=== PATIENT | male | born 1965 | race Caucasian/White ===

== ENCOUNTER 2017-02-13 15:21 | Emergency (ER) | payer OTHER ==
[~2017-02-13] VITALS: Ht 185.4 cm; Wt 118.0 kg
[2017-02-13 15:37] VITALS: Ht 185.4 cm; Wt 118.0 kg
[2017-02-13] MEDS ORDERED: KETOROLAC 15 MG INJ IV STA (17:04)
--- NOTE | 2017-02-13 17:11 | ERD ---
ER Documentation Chief Complaint Chief Complaint sent by pmd, possible infection on right calf x1wk HPI insect sting right calf, incident happed 10 days ago, removed stinger progressive worsen , now red, hot, draining pus, and edema. ROS All systems reviewed and are negative except as per history of present illness. Medications Home Meds Active Scripts Ibuprofen* (Motrin*) 600 Mg Tab, 600 MG PO Q6, #30 TAB Prov:JAYASHREE,ROULA 02/13/17 Hydrocodone/Acetaminophen ([place] 10-325 Tablet) 1 Each Tablet, 1 TAB PO Q6H Y for PAIN, #10 TAB Prov:JAYASHREE,ROULA 02/13/17 Clindamycin Hcl* (Clindamycin Hcl*) 300 Mg Capsule, 300 MG PO TID for 10 Days, CAP Prov:JAYASHREE,ROULA 02/13/17 Allergies Allergies: Coded Allergies: No Known Allergy (Unverified , 02/13/17) Physical Exam Vitals Vital Signs Date Time Temp Pulse Resp B/P Pulse Ox O2 Delivery O2 Flow Rate FiO2 02/13/17 15:37 98.2 95 20 176/86 96 Physical Exam Const: Well-nourished well-appearing well-hydrated 51-year-old male patient no acute distress Head: Eyes: ENT: Neck: Resp: Cardio: Skin: Left outer calf presents with hard nonfluctuating open draining wound 2- 1/2 cm center on an erythremic base extending 4 cm. Back: Ext: Left lower extremity with edema obviously larger than right lower extremity Neur: Awake and alert Psych: Normal Mood and Affect Result Diagram: 02/13/17 1716 02/13/17 1716 Results 24 hrs Laboratory Tests Test 02/13/17 17:16 White Blood Count 12.010^3/ul Red Blood Count 4.9210^6/ul Hemoglobin 13.4g/dl Hematocrit 41.7% Mean Corpuscular Volume 84.8fl Mean Corpuscular Hemoglobin 27.2pg Mean Corpuscular Hemoglobin Concent 32.1g/dl Red Cell Distribution Width 13.8% Platelet Count 62751^3/UL Mean Platelet Volume 10.2fl Neutrophils % % Segmented Neutrophils % (Manual) 78% Lymphocytes % 22.6% Lymphocytes % (Manual) 9% Reactive Lymphocytes % (Manual) 7% Monocytes % 7.8% Monocytes % (Manual) 5% Eosinophils % % Eosinophils % (Manual) 1% Basophils % 0.4% Basophils % (Manual) 1% Nucleated Red Blood Cells % 0.0/100WBC Neutrophils # 10^3/ul Absolute Lymphocytes (Manual) 1.010^3/ul Lymphocytes # 2.710^3/ul Reactive Lymphocytes # 0.810^3/ul Monocytes # 0.910^3/ul Absolute Monocytes (Manual) 0.610^3/ul Eosinophils # 10^3/ul Basophils # 0.110^3/ul Basophils # (Manual) 0.110^3/ul Nucleated Red Blood Cells # 0.010^3/ul Platelet Estimate NORMAL Giant Platelets 2% Poikilocytosis 2+ Sodium Level 141mmol/L Potassium Level 4.2mmol/L Chloride Level 103mmol/L Carbon Dioxide Level 27mmol/L Anion Gap 15 Blood Urea Nitrogen 14mg/dl Creatinine 0.78mg/dl Glucose Level 156mg/dl Calcium Level 9.6mg/dl Total Bilirubin 0.3mg/dl Direct Bilirubin 0.00mg/dl Indirect Bilirubin 0.3mg/dl Aspartate Amino Transf (AST/SGOT) 28IU/L Alanine Aminotransferase (ALT/SGPT) 61IU/L Alkaline Phosphatase 76IU/L Total Protein 8.2g/dl Albumin 4.7g/dl Globulin 3.50g/dl Albumin/Globulin Ratio 1.34 Current Medications Medications (Trade) Dose Ordered Sig/Kaitlin Route PRN Reason Start Time Stop Time Status Last Admin Dose Admin Sodium Chloride 1,000 ml @ 1,000 mls/hr Q1H ONCE IV 02/13/17 17:30 02/13/17 18:29 DC 02/13/17 17:22 Clindamycin HCl/ Dextrose (Cleocin 900 Mg/ D5W (Pmx)) 50 ml @ 50 mls/hr ONCE IVPB 02/13/17 17:30 02/13/17 18:29 DC 02/13/17 17:36 Ketorolac Tromethamine (Toradol) 15 mg ONCE STAT IV 02/13/17 17:04 02/13/17 17:15 DC 02/13/17 17:22 Diphtheria/ Tetanus/Acell Pertussis (Adacel) 0.5 ml ONCE ONCE IM* 02/13/17 18:30 02/13/17 18:31 DC 02/13/17 18:57 Lidocaine (Xylocaine 2% (Mdv) 20 ml) 20 ml ONCE STAT INJ 02/13/17 19:00 02/13/17 19:07 DC 02/13/17 19:27 Acetaminophen/ Hydrocodone Bitart ([place] ()) 1 tab ONCE STAT PO 02/13/17 19:00 02/13/17 19:07 DC 02/13/17 19:27 Interpretation text CBC shows no evidence of hemorrhage WBCs elevated 12.0 Chemistry shows no evidence of significant electrolyte abnormalities or renal insufficiency Liver function tests shows no evidence of acute biliary or hepatic dysfunction Lipase shows no evidence of acute pancreatitis Procedures/MDM PROCEDURE: Ultrasound soft tissues limited CLINICAL INDICATION: Right calf pain and lump. Possible abscess TECHNIQUE: Real time sonographic imaging of the soft tissues involving the right leg is performed and a total of 10 static mcgill scale and Doppler images are sent to the PACS for review. COMPARISON: None available FINDINGS: Diffuse branching hypoechoic areas within the subcutaneous tissues and musculature most concerning for cellulitis and myositis. In the area of clinical concern, there is an ovoid approximately 3.1 x 2.4 x 1.8 cm area having mixed increased and decreased echogenicity as well as increased through transmission and no internal blood flow, findings unable to exclude a hematoma or possibly abscess. RPTAT:HJJR IMPRESSION: 1. Ovoid lesion of 3.1 cm in the area of clinical concern as mixed echogenicity and increased through transmission without internal blood flow, the differential diagnostic possibilities abscess and hematoma. Follow-up imaging should be based upon clinical assessment. 2. Diffuse edematous changes of the right leg most compatible with edema there is unable to exclude cellulitis in the proper clinical setting. Electronically viewed and signed by Gutierrez Chicas Physician on 02/13/2017 18:49 Abscess Incision and Drainage with irrigation by me: Location: Right calf Anesthesia: Local 2% Lidocaine] Technique: Irrigated. Disrupted loculations w/ instrumentation Packin-1/2 cm deep, packing placed Complications: Neurovascularly intact post procedure erythema and edema involving left lower extremity, marked with sharpie Patient's skin symptoms have stabilized while they have been evaluated in the department and are appropriate for outpatient care and work up. Exam and w/u not consistent w/ sepsis, deep space infection, or foreign body. This 51-year-old male patient presents to emergency department for evaluation of a right calf insect sting, patient has been treating himself for the last 10 days with soap and water, and applying a wet hydrogen peroxide dressing, patient 's leg is obviously edematous when compared to the opposing leg, has hard nonflocculating open excoriated 2-1/2 cm center on an erythremic base extending 8 cm. , patient has had hot and cold chills, denies nausea or vomiting reports decreased appetite. Patient is unsure of his last tetanus. Patient receives 900 mg of intravenous clindamycin, 1 L of normal saline, 10/325 of [place] serology positive for leukocytosis suggestive of infection, ultrasound shows diffuse edema changes in the right leg most compatible with edema unable to exclude cellulitis, ovoid lesion 3.1 cm in the area of clinical concern as mixed echogenicity and increased throughout transmission without internal blood flow the differential diagnosis includes abscess or hematoma. This case discussed with supervising physician Dr. Davis , Incision and drainage in usual fashion over sterile technique see above patient instructed to follow-up in 24 hours, discharged home with clindamycin 300 mg 1 tab p.o. every 8 hours as needed, instructed to take 1 tonight, [place] 10/325 count of 10, ibuprofen 600 mg 1 tab p.o. every 6 hours as needed pain. Patient is stable with no new complaints during ER course, clinically there is no current evidence to suggest DVT, necrotizing fasciitis, compartment syndrome, or any other emergent condition appearing to require further evaluation or hospitalization. I feel the patient is stable for discharge at this time. I have discussed results, examination findings, the treatment plan with the patient and family present prior to discharge. Indications for emergent reevaluation, side effects of medication were also discussed. All questions were answered. Patient verbalizes understanding and agrees with plan of care. Departure Diagnosis: Primary Impression: Infected bite wound Additional Impression: Abscess Condition: Good Patient Instructions: Abscess, Incision And Drainage, Insect Sting/Bite, Infected Additional Instructions: Thank you for for coming to [facility] or your care today. Please ask your nurse or provider if you have questions about your care today and do not leave until all your questions have been answered. Please use any medications given as directed and follow-up with your doctor (or the doctor you were referred to) in the next 2-3 days. If you do not have a primary care doctor you may follow up at the community hospital (listed below). You may also use motrin and tylenol as needed for fever and/or pain unless instructed otherwise by your provider or nurse. Indications for more urgent follow-up have been discussed, but you may return to the Emergency Department at ANY time for any worrisome or worsening symptoms. If you have abdominal pain, please know that no test or exam you received is perfect and you should follow up within 8 hours for continued pain. If you had any imaging studies today, such as an X-Ray or CT Scan, these studies will be reviewed later by a radiologist. You will be called if there are important findings that were not identified today, so make sure the contact information you provided at registration is correct. If you received any narcotic pain control medicine today, such as Vicodin, Morphine or Dilaudid, your coordination and judgment may be affected for a number of hours. Please do not drive or operate heavy machinery, and you may want someone to assist you at home. If you were given a prescription for narcotic medication, be aware that it is very addictive- use sparingly and only if necessary. Comments Return to the [facility] emergency room tomorrow for wound reevaluation ROULA BLANC Feb 13, 2017 17:11
[2017-02-13 17:22] LABS: ABNORMAL IP MESSAGE 1; HEMATOCRIT 41.7 % (42.0-52.0); HEMOGLOBIN 13.4 g/dl (14.0-18.0); MEAN CORPUSCULAR HEMOGLOBIN 27.2 pg (29.0-33.0); MEAN CORPUSCULAR HGB CONC 32.1 g/dl (32.0-37.0); MEAN CORPUSCULAR VOLUME 84.8 fl (82.0-101.0); MEAN PLATELET VOLUME 10.2 fl (7.4-10.4); PLATELET COUNT 326 10^3/UL (140-415); POSITIVE DIFF @See below; RED BLOOD COUNT 4.92 10^6/ul (4.70-6.10); RED CELL DISTRIBUTION WIDTH 13.8 % (11.5-14.5)
[2017-02-13] MEDS ORDERED: SOD CHLORIDE 0.9% 1,000 ML IV ONE (17:30)
[2017-02-13] MEDS ORDERED: CLINDAMYCIN 900 MG/D5W (PMX) 50 ML IVPB SCH (17:30)
[2017-02-13 17:42] LABS: ALBUMIN 4.7 g/dl (3.3-4.9); ALBUMIN/GLOBULIN RATIO 1.34; BILIRUBIN,INDIRECT 0.3 mg/dl (0-1.1); BILIRUBIN,TOTAL 0.3 mg/dl (0.2-1.3); CALCIUM 9.6 mg/dl (8.4-10.2); CREATININE 0.78 mg/dl (0.61-1.24); POTASSIUM 4.2 mmol/L (3.5-5.1); TOTAL PROTEIN 8.2 g/dl (6.1-8.1)
[2017-02-13] MEDS ORDERED: DIPHTH/TET/ACEL PERTUSS (ADULT) 0.5 ML VIAL IM* ONE (18:30)
[2017-02-13 18:41] LABS: BASOPHIL # 0.1 10^3/ul (0.0-0.1); BASOPHILS % 0.4 % (0.0-2.0); LYMPHOCYTES # 2.7 10^3/ul (0.8-2.9); LYMPHOCYTES % 22.6 % (15.0-51.0); MONOCYTE # 0.9 10^3/ul (0.3-0.9); MONOCYTES % 7.8 % (0.0-11.0)
--- NOTE | 2017-02-13 18:49 | RADRPT ---
PROCEDURE: Ultrasound soft tissues limited CLINICAL INDICATION: Right calf pain and lump. Possible abscess TECHNIQUE: Real time sonographic imaging of the soft tissues involving the right leg is performed and a total of 10 static mcgill scale and Doppler images are sent to the PACS for review. COMPARISON: None available FINDINGS: Diffuse branching hypoechoic areas within the subcutaneous tissues and musculature most concerning f or cellulitis and myositis. In the area of clinical concern, there is an ovoid approximately 3.1 x 2.4 x 1.8 cm area having mixed increased and decreased echogenicity as well as increased through tra nsmission and no internal blood flow, findings unable to exclude a hematoma or possibly abscess. RPTAT:HJJR IMPRESSION: 1. Ovoid lesion of 3.1 cm in the area of clinical concern as mixed echogenicity and increased throu gh transmission without internal blood flow, the differential diagnostic possibilities abscess and h ematoma. Follow-up imaging should be based upon clinical assessment. 2. Diffuse edematous changes of the right leg most compatible with edema there is unable to exclude cellulitis in the proper clinical setting. Physician Hitesh Date Time Electronically viewed and signed by Physician Hitesh on 02/13/2017 18:49 JR/
[2017-02-13] MEDS ORDERED: LIDOCAINE 2% (MDV) 20 ML INJ INJ STA (19:00)
[2017-02-13] MEDS ORDERED: HYDROCODONE/APAP (10/325) TAB PO STA (19:00)
[2017-02-13 19:07] LABS: BASOPHILS % (M) 1 % (0-2); EOSINOPHILS % (M) 1 % (0-7); GIANT THROMBO% (M) 2 % (0-0); MONOCYTES % (M) 5 % (0-11); PLATELET ESTIMATE NORMAL; POIKILOCYTOSIS 2+ (0-0); REACTIVE LYMPHOCYTES% (M) 7 % (0-0)
[2017-02-13] MEDS ORDERED: CLIN-73 PO (21:04)
[2017-02-13] MEDS ORDERED: HYDR-902 PO (21:04)
[2017-02-13] MEDS ORDERED: IBUP-1542 PO (21:05)
[2017-02-13 21:20] VITALS: BP 135/90; PULSE 90; RESP 16; TEMP 98
== END 2017-02-13 21:21 | disposition home or self-care (01) ==
LOC: FTE 15:21
DX: L02.415 Cutaneous abscess of right lower limb (principal); L08.89 Other specified local infections of the skin and subcutaneous tissue
CPT/HCPCS: 10061; 76536; 80053; 85025; 90471; 90715; 96374; 96375; J1885; J7030; Z7502; Z7610

== ENCOUNTER 2017-02-15 14:16 | Emergency (ER) | payer OTHER ==
[~2017-02-15] VITALS: Ht 185.4 cm; Wt 119.0 kg
[~2017-02-15 14:16] MED LIST: CLIN-73 PO; HYDR-902 PO; IBUP-1542 PO
[2017-02-15 14:19] VITALS: Ht 185.4 cm; Wt 119.0 kg
--- NOTE | 2017-02-15 15:18 | ERD ---
ER Documentation Chief Complaint Chief Complaint wound check(abscess) right leg HPI This is a 51-year-old male who presents to the emergency department today for a wound check of an infected bite wound that he had been seen here for a couple of days ago. States he is taking his antibiotics. Denies any fevers or chills. States he thinks it is "getting better". ROS All systems reviewed and are negative except as per history of present illness. Medications Home Meds Active Scripts Ibuprofen* (Motrin*) 600 Mg Tab, 600 MG PO Q6, #30 TAB Prov:JAYASHREE,ROULA 02/13/17 Hydrocodone/Acetaminophen ([place] 10-325 Tablet) 1 Each Tablet, 1 TAB PO Q6H Y for PAIN, #10 TAB Prov:JAYASHREE,ROULA 02/13/17 Clindamycin Hcl* (Clindamycin Hcl*) 300 Mg Capsule, 300 MG PO TID for 10 Days, CAP Prov:JAYASHREE,ROULA 02/13/17 Allergies Allergies: Coded Allergies: No Known Allergy (Unverified , 02/13/17) PMhx/Soc Hx Alcohol Use: No Hx Substance Use: No Hx Tobacco Use: No Physical Exam Vitals Vital Signs Date Time Temp Pulse Resp B/P Pulse Ox O2 Delivery O2 Flow Rate FiO2 02/15/17 14:19 99.5 99 18 173/102 97 Physical Exam Const: NAD Head: Atraumatic Eyes: Normal Conjunctiva ENT: Normal External Ears, Nose and Mouth. Neck: Full range of motion..~ No meningismus. Resp: Clear to auscultation bilaterally Cardio: Regular rate and rhythm, no murmurs Abd: Soft, non tender, non distended. Normal bowel sounds Skin: Right gastroc with evidence of mildly draining abscess and localized erythema. Back: No midline or flank tenderness Ext: No cyanosis, or edema Neur: Awake and alert Psych: Normal Mood and Affect Procedures/MDM This 51-year-old male who presents the emergency department today for an infected bite wound and abscess that he had drained a couple of days ago. Upon review of patient's medical records patient was seen here February 13 and had an abscess on his right gastroc drained at that time. He did have a significant amount of erythema and swelling and ultrasound was done at that time that showed no evidence of DVT. Patient is afebrile and otherwise well- appearing. On physical exam he does have evidence of wound packing in place. I did remove the wound packing there is a significant amount of deep space and therefore I did place new packing and instruct the patient to return in 2 days for another wound check. There was an area of demarcation drawn around the area of erythema and the area appears to be smaller at this time based on the skin markings. I do not feel the patient requires repeat imaging. Low suspicion for sepsis. Patient was instructed to continue taking his clindamycin and return in 48 hours for wound check. Patient also endorsed smoking 10-15 cigarettes a day and he has been counseled for greater than 3 minutes on smoking cessation and instructed this will significantly delay his wound healing. Patient understood. At this time the patient is stable for discharge and outpatient management. Patient should follow up with their PCP in the next 1-2 days. They may return to the emergency department sooner for any persistent or worsening of symptoms. Patient understood and agreed with the plan. Departure Diagnosis: Primary Impression: Encounter for wound re-check Condition: Fair Patient Instructions: Wound Care Referrals: your PCP Additional Instructions: Call your primary care doctor TOMORROW for an appointment during the next 1-2 days.See the doctor sooner or return here if your condition worsens before your appointment time. Wound check in 48 hours Stop smoking cigarettes. Continue taking your antibiotics as prescribed. Keep wound clean and dry. BATSHEVA PADILLA PA-C Feb 15, 2017 15:18
[2017-02-15 16:35] VITALS: BP 144/68; PULSE 71; RESP 18; TEMP 98.5
== END 2017-02-15 17:08 | disposition home or self-care (01) ==
LOC: FTE 14:16
DX: Z48.01 Encounter for change or removal of surgical wound dressing (principal)
CPT/HCPCS: 99281

== ENCOUNTER 2017-02-17 14:22 | Emergency (ER) | payer OTHER ==
[~2017-02-17] VITALS: Wt 119.0 kg
[2017-02-17] MEDS ORDERED: NEOM1PAC TP (17:19)
--- NOTE | 2017-02-17 17:22 | ERD ---
ER Documentation Chief Complaint Chief Complaint WOUND CHECK ON RIGHT CALF HPI This is a 51-year-old male presents the emergency department today for wound check of an abscess that he had drained several days ago on his right calf. States he is continuing take his antibiotics as prescribed. Denies any fevers or chills. ROS All systems reviewed and are negative except as per history of present illness. Medications Home Meds Active Scripts Neomycin Cee/Bacitrac Zn/Poly (Triple Antibiotic Ointment) 1 Each Oint.pack, 1 EACH TP BID for 7 Days Prov:BATSHEVA PADILLA PA-C 02/17/17 Ibuprofen* (Motrin*) 600 Mg Tab, 600 MG PO Q6, #30 TAB Prov:JAYASHREE,ROULA 02/13/17 Hydrocodone/Acetaminophen ([place] 10-325 Tablet) 1 Each Tablet, 1 TAB PO Q6H Y for PAIN, #10 TAB Prov:JAYASHREE,ROULA 02/13/17 Clindamycin Hcl* (Clindamycin Hcl*) 300 Mg Capsule, 300 MG PO TID for 10 Days, CAP Prov:JAYASHREE,ROULA 02/13/17 Allergies Allergies: Coded Allergies: No Known Allergy (Unverified , 02/13/17) PMhx/Soc History of Surgery: No Anesthesia Reaction: No Hx Neurological Disorder: No Hx Respiratory Disorders: No Hx Cardiac Disorders: No Hx Psychiatric Problems: No Hx Miscellaneous Medical Probl: No Hx Alcohol Use: No Hx Substance Use: No Hx Tobacco Use: No Smoking Status: Never smoker Physical Exam Vitals Vital Signs Date Time Temp Pulse Resp B/P Pulse Ox O2 Delivery O2 Flow Rate FiO2 02/17/17 14:23 98.6 81 17 157/93 98 Physical Exam Const: NAD Head: Atraumatic Eyes: Normal Conjunctiva ENT: Normal External Ears, Nose and Mouth. Neck: Full range of motion..~ No meningismus. Resp: Clear to auscultation bilaterally Cardio: Regular rate and rhythm, no murmurs Abd: Soft, non tender, non distended. Normal bowel sounds Skin: Right gastroc with evidence of wound and wound packing. Very mild localized erythema. Mild purulent drainage. Back: No midline or flank tenderness Ext: No cyanosis, or edema Neur: Awake and alert Psych: Normal Mood and Affect Procedures/MDM This 51-year-old male who presents the emergency department today for a wound check of an abscess that he had drained a few days ago. Upon review of patient' s medical records patient was seen here on February 13, 2017 and had his abscess on his right calf drained at that time. Patient may have been bit by an insect that led to the abscess. I did see the patient when he returned on February 15 for a wound check. The incisional area was fairly deep and therefore did repack the wound at that time and patient did return today. Patient had line demarcation drawn around the erythematous area in his calf at initial presentation. There is hardly any localized erythema and it is much improved since when I saw him 2 days ago. I do not feel the patient needs to have packing replaced. He is afebrile and otherwise well-appearing. Low suspicion for sepsis, deep space tracking infection. Patient was instructed to continue taking his antibiotics as prescribed. I have also given him a prescription for triple antibiotic ointment and he has been instructed to keep the wound clean and dry. At this time the patient is stable for discharge and outpatient management. Patient should follow up with their PCP in the next 1-2 days. They may return to the emergency department sooner for any persistent or worsening of symptoms. Patient understood and agreed with the plan. Departure Diagnosis: Primary Impression: Encounter for wound re-check Condition: Fair Patient Instructions: Wound Care Referrals: [facility] YOU HAVE RECEIVED A MEDICAL SCREENING EXAM AND THE RESULTS INDICATE THAT YOU DO NOT HAVE A CONDITION THAT REQUIRES URGENT TREATMENT IN THE EMERGENCY DEPARTMENT. FURTHER EVALUATION AND TREATMENT OF YOUR CONDITION CAN WAIT UNTIL YOU ARE SEEN IN YOUR DOCTORS OFFICE WITHIN THE NEXT 1-2 DAYS. IT IS YOUR RESPONSIBILITY TO MAKE AN APPOINTMENT FOR FOLOW-UP CARE. IF YOU HAVE A PRIMARY DOCTOR --you should call your primary doctor and schedule an appointment IF YOU DO NOT HAVE A PRIMARY DOCTOR YOU CAN CALL OUR PHYSICIAN REFERRAL HOTLINE AT IF YOU CAN NOT AFFORD TO SEE A PHYSICIAN YOU CAN CHOSE FROM THE FOLLOWING [facility] [address] [facility] [address] [facility] [address] [facility] [address] [facility] [facility] [address] [facility] [facility] Usronel se cruz hecho un examen mdico de control que le indica que no est en dano condicin que requiera tratamiento urgente en el Departamento de Emergencia. Un estudio ms profundo y el tratamiento de cee condicin pueden esperar sin ningn riesgo hasta que usted sea atendida/o en el consultorio de cee mdico o dano cl lakia. Es responsabilidad suya arreglar dano nora para el seguimiento del moira. MANEJO DE CONDICIONES NO URGENTES EN EL FUTURO 1) Si usted tiene un mdico de atencin primaria: Usted debera llamar a cee mdico de atencin primaria antes de venir al departamento de emergencia. Despus de las horas de consultorio, cee doctor o cee asociado/a est disponible por telfono. El mdico o enfermero de kaylin en el servicio telefnico puede asesorarle por jonas medio para atender el problema, o moira contrario se puede programar dano nora. 2) Si usted no tiene un mdico de atencin primaria: Llame al mdico o clnica de referencia que aparece abajo dina las horas de consultorio para hacer dano nora para que le vean. CLINICAS: [facility] [phone] [facility] [phone] [facility] 039 [phone] [address] [facility]. [place] [phone] [facility] [place] [phone] [facility] [phone] [address] Additional Instructions: Call your primary care doctor TOMORROW for an appointment during the next 1-2 days.See the doctor sooner or return here if your condition worsens before your appointment time. Continue taking your antibiotics as prescribed. Keep wound clean and dry BATSHEVA PADILLA PA-C Feb 17, 2017 17:22
== END 2017-02-17 18:55 | disposition left against medical advice (07) ==
LOC: FTE 14:22
DX: Z48.01 Encounter for change or removal of surgical wound dressing (principal)
CPT/HCPCS: 99281

== ENCOUNTER 2017-05-21 13:14 | Emergency (ER) | END 2017-05-21 14:44 | disposition home or self-care (01) ==